=== PATIENT | female | born 1985 | race Caucasian/White ===

== ENCOUNTER 2024-05-26 09:48 | Outpatient (OUT) | payer BC, SELFPAY | END 2024-05-26 09:49 | disposition home or self-care (01) | LOC: PST 09:53 | PROVIDERS: PCP Nurse Practitioner Family; Visit Provider Obstetrics & Gynecology | DX: Z01.818 Encounter for other preprocedural examination (principal) ==

== ENCOUNTER 2024-06-05 06:54 | Day surgery (SDC) | payer BC, SELFPAY ==
[2024-05-26 10:07] VITALS: BP 129/85; PULSE 85; TEMP 36.6; O2SAT 96; BMI 27.0
[2024-06-05] VITALS (10 sets, daily range): BP systolic 105–134; BP diastolic 62–98; PULSE 73–97; TEMP 36.2; O2SAT 95–98; BMI 27.0
--- OUTSIDE RECORDS SUMMARY | 2024-06-05 06:58 | XMS_ITS | CCD ---
Author Organization [facility] Care Team Providers Care Cut In Worker Name Role Phone Cyndy Cox Primary Care Provider Cyndy Maldonado Primary Care Provider Renuka Hanley Unavailable Saritha Mehta Unavailable Patrizia Sal MD Primary Care Provider Patrizia Sal MD Unavailable Medications Current Medications Medication Drug Class(es) Dates Sig (Normalized) Sig (Original) ethinyl estradiol 0.02 mg / levonorgestrel 0.1 mg oral tablet (3 sources) Progestin, Estrogen, Progestin-containi ng Intrauterine Device Start: 10-22-2023 End: 10-21-2024 take 0.1-20 tablets by mouth once daily levonorgestrel-eth inyl estradiol (Aviane, Alesse, Lessina) 0.1-20 MG-MCG tablet Indications: Unwanted fertility Take 1 tablet by mouth Daily 28 tablet 2 10/22/2023 01/28/2024 Discontinued (Therapy completed) fluconazole 150 mg oral tablet (4 sources) Azole Antifungal Start: 03-16-2024 End: 03-30-2024 take 2 tablets by mouth every week fluconazole (Diflucan) 150 MG tablet Indications: Tinea versicolor Take 2 tablets (300 mg) by mouth 1 (one) time per week for 14 days 4 tablet 03/16/2024 03/30/2024 Active MULTIVITAMIN Tab (4 sources) take 1 tablet by mouth once daily MULTIVITAMIN Tab Take 1 tablet by mouth daily. 0 Active therapeutic sqfjbnalvsub-tirp-aw nerals (Theragran-M) tablet (10 sources) take 1 tablet by mouth in the morning therapeutic multivitamin-iron- minerals (Theragran-M) tablet Take 1 tablet by mouth in the morning. Active Completed/Discontinued Medications Medication Drug Class(es) Dates Sig (Normalized) Sig (Original) benzonatate 100 mg oral capsule (2 sources) Non-narcotic Antitussive Start: 08-25-2022 take 1 capsule by mouth three times daily as needed Tessalon Perles 100 MG 1 capsule as needed Orally Three times a day for 7 days Aug, Not-Taking ferrous sulfate 325 mg oral tablet (2 sources) End: 09-26-2021 take 1 tablet by mouth once daily ferrous sulfate 325 (65 Fe) MG Tab tablet Take 325 mg by mouth daily. 0 09/26/2021 Discontinued levonorgestrel 0.430230 mg/hr intrauterine system (4 sources) Progestin, Progestin-containi ng Intrauterine Device Start: 10-03-2021 End: 10-03-2021 Levonorgestrel (MIRENA) 20 MCG/DAY IUD 1 Intra Uterine Device Start: 10-03-2021 End: 10-03-2028 Levonorgestrel (Mirena, 52 M G,) 20 MCG/DAY 1 Device by Intrauterine route Once. use as directed,Inserted on 10-03-21. 0 10/03/2021 10/03/2028 Active predniSONE 20 mg oral tablet (2 sources) Start: 08-25-2022 take 1 tablet by mouth every twelve hours prednisone 20 MG 1 tablet Orally BID for 5 days Aug, Not-Taking Problems Active Problems Problem Classification Problem Date Documented Date Episodic/Chronic Contraceptive and procreative management (17 sources) Patient encounter status; Translations: [Encounter for other contraceptive management] Onset: 03-30-2024 Episodic Immunizations and screening for infectious disease (1 source) At risk of sexually transmitted infection ; Translations: [Contact with and (suspected) exposure to infections with a predominantly sexual mode of transmission] Episodic Mycoses (4 sources) Pityriasis versicolor; Translations: [Pityriasis versicolor] 03-16-2024 Episodic Other skin disorders (2 sources) Eruption; Translations: [Rash and other nonspecific skin eruption] 03-16-2024 Episodic Other upper respiratory infections (1 source) Acute upper respiratory infection, unspecified Episodic Unclassified (1 source) Patient encounter status; Translations: [Well adult exam] Past or Other Problems Problem Classification Problem Date Documented Da te Episodic/Chronic Unclassified (1 source) Cough R05.9 Unclassified (1 source) Contact with and (suspected) exposure to covid-19 Z20.822 Viral infection (1 source) COVID-19 Results Test Name Value Interpretation Reference Range Facility COVID Quick Testingon 2022 Result Positive [facility] Other Cytology Cervical or vaginal smear or scraping [facility]on [facility]-20-[facility]22 [facility] Result Negative [facility] Other IG PAP CT/NG/TRICH HPV W/RFX on 10-09-2021 . . Normal [facility] Comment on above: Performed By: #### L PCGT #### Testing performed at [address] [address] CHLAMYDIA,NUC ACID AMP Negative [facility] Comment on above: Result Comment: Refe rence range: Negative Performed By: #### L PCGT #### Testing performed at [address] [place] [address] DIAGNOSIS: Comment Normal [facility] Comment on above: Result Comment: NEGA TIVE FOR INTRAEPITHELIAL LESION OR MALIGNANCY. Performed By: #### L PCGT #### Testing performed at [address] [place] [address] GONOCOCCUS,NUC ACID AMP Negative [facility] Comment on above: Result Comment: Refe rence range: Negative Performed By: #### L PCGT #### Testing performed at [address] [place] [address] HPV Negative Normal [facility] Comment on above: Result Comment: Refe rence range: Negative (NOTE) This nucleic acid amplification test detects fourteen high-risk HPV types (16,18,31,33,35,39,45,51,52,56,58,59,66,68) without differentiation. Performed By: #### L PCGT #### Testing performed at [address] [address] NOTE: Comment Normal [facility] Comment on above: Result Comment: (NOT E) The Pap smear is a screening test designed to aid in the detection of premalignant and malignant conditions of the uterine cervix. It is not a diagnostic procedure and should not be used as the sole means of detecting cervical cancer. Both false-positive and false-negative reports do occur. PERFORMED AT [facility] Performed By: #### L PCGT #### Testing performed at [address] [address] PERFORMED BY: Comment [facility] Comment on above: Result Comment: Jesús Andujar, Wood Barrel Reconditioner Performed By: #### L PCGT #### Testing performed at [place] [id number] SPECIMEN ADEQUACY: Comment [facility] Comment on above: Result Comment: (NOT E) Satisfactory for evaluation. Endocervical and/or squamous metaplastic cells (endocervical component) are present. Performed By: #### L PCGT #### [place] [address] TEST METHODOLOGY: Comment [facility] Comment on above: Result Comment: (NOT E) This liquid based ThinPrep(R) pap test was screened with the use of an image guided system. PERFORMED AT [facility] Performed By: #### L PCGT #### [place] [address] TRICH [facility] BY JARED Negative [facility] Comment on above: Result Comment: No. of containers..01 ThinPrep Vial Reference range: Negative PERFORMED AT [facility] Performed By: #### L PCGT #### Testing performed at [place] [id number] HCG ( test) Ql (U)O rdered By: Sunita Tan on 10-03-2021 HCG.beta subunit [Moles/Vol] Negative [facility] IUD INSERTIONon 10-03-2021 Prieto Julio MD 10/03/2021 2:56 PM IUD INSERTION Date/Time: 10/03/2021 2:20 PM Performed by: Prieto Julio MD Authorized by: Prieto Julio MD Pre-Procedure Details: Indications for use: contraception. The risks of infection, uterine perforation, migration of the device, pain, bleeding, expulsion, and failure to prevent were discussed and informed consent was obtained. The patient was given a verbal description of the intended procedure including the risks and benefits of the procedure. The patient was then able to provide written informed consent for the above procedure. Current method of control: none. A urine test was negative. Procedure Details: A bimanual exam was performed. Uterus retroflexed. Speculum was inserted and cervix was visualized. The cervix was cleansed with antiseptic solution. A tenaculum was placed on the cervix. The uterus sounded to 6.5 (cm). The IUD was inserted according to the linen room custodian's directions without complications. IUD type: Mirena Lot number: [id number] Exp: 08/2023. The IUD strings were trimmed to 3 cm. Post-procedure Details: The patient tolerated the procedure well. The patient was advised to call for any fever, severe pain or heavy bleeding. She was advised to use over the counter analgesics as needed for mild to moderate pain. Comments: Post procedure instructions given Return for string check in 4 weeks [facility] Vital Signs Date Time Vital Sign Value Performing Clinician Facility 05-12-2024 09:32-0500 Body height 160 cm Quotations Book Phone: [facility] 05-12-2024 09:32-0500 Body mass index (BMI) [Ratio] 27.63 kg/m2 [facility] Book Phone: [facility] 05-12-2024 09:32-0500 Body weight 70.76 kg [employer] Book Phone: [facility] 05-12-2024 09:32-0500 Diastolic blood pressure 60 mm[Hg] [employer] Book Phone: [facility] 05-12-2024 09:32-0500 Systolic blood pressure 110 mm[Hg] [employer] Book Phone: [facility] 03-30-2024 13:22-0500 Body mass index (BMI) [Ratio] 26.22 kg/m2 GoGoVan DO Work Phone: [facility] 03-30-2024 13:22-0500 Body weight 67.13 kg Charles Jenny DO Work Phone: [facility] 03-30-2024 13:22-0500 Diastolic blood pressure 72 mm[Hg] Charles Jenny DO Work Phone: [facility] 03-30-2024 13:22-0500 Systolic blood pressure 120 mm[Hg] Charles Jenny DO Work Phone: [facility] 03-16-2024 17:17-0500 Body height 160 cm Natacha Santiagomai DIRECTOR OF CONTENT AND PROGRAMMING Work Phone: [facility] 03-16-2024 17:17-0500 Body mass index (BMI) [Ratio] 26.78 kg/m2 Natacha Santiagomai DIRECTOR OF CONTENT AND PROGRAMMING Work Phone: [facility] 03-16-2024 17:17-0500 Body weight 68.58 kg Natacha Santiagoizzygillesbalaji DIRECTOR OF CONTENT AND PROGRAMMING Work Phone: [facility] 03-16-2024 17:17-0500 Diastolic blood pressure 82 mm[Hg] Natacha Santiagomai DIRECTOR OF CONTENT AND PROGRAMMING Work Phone: [facility] 03-16-2024 17:17-0500 Heart rate 91 /min Natacha Santiagomai DIRECTOR OF CONTENT AND PROGRAMMING Work Phone: [facility] 03-16-2024 17:17-0500 SaO2% (BldA) [Mass fraction] 98 % Natacha Santiagomai DIRECTOR OF CONTENT AND PROGRAMMING Work Phone: [facility] 03-16-2024 17:17-0500 Systolic blood pressure 116 mm[Hg] Natacha Haizzyenburg DIRECTOR OF CONTENT AND PROGRAMMING Work Phone: [facility] 01-28-2024 11:30-0400 Body mass index (BMI) [Ratio] 27.81 kg/m2 Jelly Kennedy [facility] Work Phone: [facility] 01-28-2024 11:30-0400 Body weight 71.22 kg Jelly Kennedy [facility] Work Phone: [facility] 03-01-2023 09:25-0400 Body height 160.02 cm Saritha Mehta Other [facility] Other 03-01-2023 09:25-0400 Body mass index (BMI) [Ratio] 26.75 kg/m2 Saritha Janine Other [facility] Other 03-01-2023 09:25-0400 Body temperature 99.1 [degF] Saritha Mehta Other [facility] Other 03-01-2023 09:25-0400 Body weight 68.49 kg Saritha Angelesmond Other [facility] Other 03-01-2023 09:25-0400 Diastolic blood pressure 86 mm[Hg] Saritha Mehta Other [facility] Other 03-01-2023 09:25-0400 Respiratory rate 18 /min Saritha Mehta Other [facility] Other 03-01-2023 09:25-0400 SaO2% (BldA) [Mass fraction] 96 % Saritha Angelesmond Other [facility] Other 03-01-2023 09:25-0400 Systolic blood pressure 136 mm[Hg] Saritha Janine Other [facility] Other 08-25-2022 14:00-0400 Body height 160.02 cm Renuka Hanley Other [facility] Other 08-25-2022 14:00-0400 Body mass index (BMI) [Ratio] 28.13 kg/m2 Renuka Hanley Other [facility] Other 08-25-2022 14:00-0400 Body temperature 98.9 [degF] Renuka Hanley Other [facility] Other 08-25-2022 14:00-0400 Body weight 72.03 kg Renuka Hanley Other [facility] Other 08-25-2022 14:00-0400 Diastolic blood pressure 83 mm[Hg] Renuka Hanley Other [facility] Other 08-25-2022 14:00-0400 Respiratory rate 18 /min Renuka Hanley Other [facility] Other 08-25-2022 14:00-0400 SaO2% (BldA) [Mass fraction] 97 % Renuka Medellinler Other [facility] Other 08-25-2022 14:00-0400 Systolic blood pressure 122 mm[Hg] Renuka Hanley Other [facility] Other 10-31-2021 12:52-0400 Body height 161.3 cm Prieto Julio MD Work Phone: [facility] 10-31-2021 12:52-0400 Body mass index (BMI) [Ratio] 26.07 kg/m2 Prieto Julio MD Work Phone: [facility] 10-31-2021 12:52-0400 Body weight 67.81 kg Prieto Julio MD Work Phone: [facility] 10-31-2021 12:52-0400 Diastolic blood pressure 81 mm[Hg] Prieto Julio MD Work Phone: [facility] 10-31-2021 12:52-0400 Heart rate 78 /min Prieto Julio MD Work Phone: [facility] 10-31-2021 12:52-0400 Systolic blood pressure 123 mm[Hg] Prieto Julio MD Work Phone: 8(121)[phone] [place] [address] 10-03-2021 13:40-0400 Body height 161.3 cm Prieto Julio MD Work Phone: 8(504)[phone] [place] [address] 10-03-2021 13:40-0400 Body mass index (BMI) [Ratio] 25.11 kg/m2 Prieto Julio MD Work Phone: 7([phone])[phone] [place] [address] 10-03-2021 13:40-0400 Body weight 65.32 kg Prieto Julio MD Work Phone: 1(923)[phone] [place] [address] 10-03-2021 13:40-0400 Diastolic blood pressure 81 mm[Hg] Prieto Julio MD Work Phone: 2(689)981-155536 [place] [address] 10-03-2021 13:40-0400 Heart rate 86 /min Prieto Julio MD Work Phone: 5(702)653-800736 [place] [address] 10-03-2021 13:40-0400 Systolic blood pressure 135 mm[Hg] Prieto Julio MD Work Phone: [facility] 09-26-2021 09:38-0400 Body height 162 cm Cyndy REYES Work Phone: [facility] 09-26-2021 09:38-0400 Body mass index (BMI) [Ratio] 25.2 kg/m2 Cyndy Cox APRN-CHILDCARE CENTER ADMINISTRATOR Work Phone: [facility] 09-26-2021 09:38-0400 Body weight 66.13 kg Cyndy Cox APRN-CHILDCARE CENTER ADMINISTRATOR Work Phone: [facility] 09-26-2021 09:38-0400 Diastolic blood pressure 82 mm[Hg] Cyndy Cox APRN-CHILDCARE CENTER ADMINISTRATOR Work Phone: [facility] 09-26-2021 09:38-0400 Heart rate 77 /min Cyndy Cox APPLICATIONS SYSTEMS ENGINEER-CHILDCARE CENTER ADMINISTRATOR Work Phone: [facility] 09-26-2021 09:38-0400 Systolic blood pressure 118 mm[Hg] Cyndy Cox APPLICATIONS SYSTEMS ENGINEER-CHILDCARE CENTER ADMINISTRATOR Work Phone: [facility] 04-23-2019 09:32-0500 BMI (Body Mass Index) 23.66 kg/m2 Cyndy Kenny [facility] 04-23-2019 09:32-0500 Body weight 62.1 kg Cyndy Kenny [facility] 04-23-2019 09:32-0500 BP Diastolic 75 mm[Hg] Located Within [facility] Kenny Vacatia [facility] 04-23-2019 09:32-0500 BP Systolic 114 mm[Hg] Cyndy Kenny [facility] 04-23-2019 09:32-0500 Height 162 cm Cyndy Kenny [facility] 04-23-2019 09:32-0500 Pulse (Heart Rate) 82 /min Cyndy Kenny [facility] 04-23-2019 09:32-0500 Pulse Oximetry 100 % [facility] Encounter Date Encounter Type Care Provider Facility Start: 05-12-2024 End: 05-12-2024 Bamboo flowsheet Charles Jenny DO Work Phone: [facility] Start: 05-12-2024 End: 05-12-2024 Bamboo flowsheet Charles Jenny DO Work Phone: [facility] Start: 05-12-2024 End: 05-12-2024 Office outpatient visit 15 minutes Charles Jenny DO Work Phone: [facility] Comment on above: Pre-operative exam; Request for sterilization Start: 05-12-2024 End: 05-12-2024 Preprocedural examination done Charles Jenny DO Work Phone: [facility] Work Phone: Start: 03-30-2024 End: 03-30-2024 Bamboo flowsheet Charles Jenny DO Work Phone: [facility] Start: 03-30-2024 End: 03-30-2024 Bamboo flowsheet Charles Jenny DO Work Phone: [facility] Start: 03-30-2024 End: 03-30-2024 Office outpatient visit 15 minutes Charles Jenny DO Work Phone: [facility] Comment on above: Encounter to discuss procedure; Unwanted fertility; Sterilization consult Start: 03-16-2024 End: 03-16-2024 Office outpatient visit 25 minutes Natacha Esposito DIRECTOR OF CONTENT AND PROGRAMMING Work Phone: [facility] Comment on above: Tinea versicolor (Pr imary Dx); Skin rash Start: 02-12-2024 End: 02-12-2024 Orders Only Jelly Kennedy CNM Work Phone: [facility] Comment on above: Unwanted fertility ( Primary Dx) Start: 01-28-2024 End: 01-28-2024 Bamboo flowsheet Jelly Kennedy CNM Work Phone: [facility] Start: 01-28-2024 End: 01-28-2024 Bamboo flowsheet Jelly Kennedy CNM Work Phone: [facility] Start: 01-28-2024 End: 01-28-2024 Gynecological examination normal Jelly Kennedy CNM Work Phone: [facility] Start: 01-28-2024 End: 01-28-2024 Periodic preventive med est patient 18-39 yrs Jelly Kennedy CNM Work Phone: [facility] Comment on above: Normal gynecologic e xamination Start: 03-01-2023 End: 03-01-2023 ambulatory Saritha Mehta Other [facility] Other Start: 03-01-2023 Office outpatient vi sit 15 minutes Saritha Mehta [facility] Start: 08-25-2022 End: 08-25-2022 ambulatory Renuka Hanley Other [facility] Other Start: 08-25-2022 Office outpatient ne w 30 minutes Renuka Hanley [facility] Start: 10-31-2021 End: 10-31-2021 Office outpatient visit 15 minutes Prieto Julio MD Work Phone: [facility] [employer]PA[employer] Comment on above: Encounter for routin e checking of intrauterine contraceptive device (IUD) (Primary Dx); IUD (intrauterine device) in place Start: 10-03-2021 End: 10-03-2021 Initial preventive medicine new patient 40-64yrs Prieto Julio MD Work Phone: [facility] [employer]PA[employer] Comment on above: Well woman exam with routine gynecological exam (Primary Dx); Encounter for screening for cervical cancer; Encounter for breast cancer screening using non-mammogram modality; Encounter for other general counseling or advice on contraception; Encounter for insertion of intrauterine contraceptive device (IUD); Possible exposure to STD Start: 09-26-2021 End: 09-26-2021 Office outpatient visit 15 minutes Cyndy Cox APRN-CHILDCARE CENTER ADMINISTRATOR Work Phone: [facility] Comment on above: Encounter for other contraceptive management (Primary Dx) Start: 04-23-2019 End: 04-23-2019 Initial preventive medicine new pt age 18-39yrs Cyndy Cox Work Phone: [facility] Comment on above: Well adult exam (Felisha carolyn Dx) Procedures Date Procedure Procedure Detail Performing Clinician Start: 12-20-2022 Microscopic observat ion [Identifier] in Cervix by Cyto stain Charles Alvarado DO Work Phone: Start: 12-20-2022 Cytp cerv/vag auto t hin layer prep mnl screen Jelly Kennedy CNM Work Phone: Start: 10-03-2021 Urine test visual color cmprsn meths Prieto Julio MD Work Phone: Start: 10-03-2021 Insertion intrauteri ne device iud Prieto Julio MD Work Phone: Plan of Treatment Date Care Activity Detail Author Start: 12-21-2027 Screening for malign ant neoplasm of cervix [facility] Start: 03-30-2024 End: 03-30-2024 Patient encounter procedure [facility] Comment on above: Unwanted fertility Start: 01-28-2024 End: 01-28-2024 Patient encounter procedure 01/28/2024 11:00 AM EDT Office Visit [facility] [address] [place] [id number] Jelly Kennedy, CNM [address] [place], [place] [id number] Arrived [facility] Comment on above: Arrived Start: 01-05-2024 Influenza vaccination Influenza Vacc ine (#1) [facility] Start: 10-03-2022 Screening for malign ant neoplasm of cervix CERVICAL CANCER SCREENING DISCUSSION [facility] Start: 01-04-2022 Influenza vaccination INFLUENZ A VACCINE (Season Ended) [facility] Start: 11-01-2021 End: 11-01-2021 Patient encounter procedure 11/01/2021 Office Visit [employer] Prieto Julio MD [address] [place] [phone] [facility] [employer] Start: 10-03-2021 End: 10-03-2021 Patient encounter procedure [facility] Start: 06-28-2021 COVID-19 VACCINE (3 - Booster for Pfizer series) COVID-19 VACCINE (3 - Booster for Pfizer series) [facility] Start: 04-23-2020 Screening for malign ant neoplasm of cervix [facility] Start: 05-06-2018 Tetanus vaccination [facility] Start: 2005 Screening for malign ant neoplasm of cervix Pap Smear [facility] Start: 11-20-1999 HIV screening HIV SCREENING DISCUSSION [facility] Start: 1997 HIV screening HIV SCREENING DISCUSSION [facility] Start: 1984 Hepatitis C antibody , confirmatory test HEPATITIS C VIRUS SCREENING [facility] IG PAP/HPV MRNA AND CT/NG/TRICH IG PAP/HPV MRNA AND CT/NG/TRICH Cytology Routine 10/03/2021 2:00 PM EDT [facility] Immunizations Immunization Date Immunization Notes Care Provider Arina hunayeli 02-18-2019 Influenza, injectabl e, Madin Mary Canine Kidney, preservative free, quadrivalent Jelly Floro CNM Work Phone: [facility] 02-18-2019 influenza virus vaccine, unspecified formulation Cyndy Kenny APPLICATIONS SYSTEMS ENGINEER-CHILDCARE CENTER ADMINISTRATOR Work Phone: [facility] 02-22-2018 influenza, injectabl e, quadrivalent, preservative free Jelly Floro CNM Work Phone: [facility] 04-22-2014 influenza, seasonal, injectable Jelly Floro CNM Work Phone: [facility] Healthcare Payers Date Payer Category Payer [facility] [id number] 2021 Unknown [id number] 2018 Unknown JUAN MARTINEZ HM O PPO POS xxxxxxxxxxxx 2018-Present [id number] [place] [employer] [id number] Social History Date Type Detail Facility Start: 04-23-2019 End: 12-20-2022 Tobacco smoking status NHIS Never smoker [facility] Start: 04-23-2019 End: 03-30-2024 Alcohol intake Current drinker of alcohol (finding) [facility] Start: 04-23-2019 History SDOH Alcohol Frequency 3 [facility] Start: 04-23-2019 History SDOH Alcohol Std Drinks 1 [facility] Start: 1985 Sex Assigned At Not on file [facility] Start: 04-23-2019 End: 12-20-2022 Tobacco use and exposure Smokeless tobacco non-user [facility] Start: 09-16-2021 End: 10-03-2021 Exposure to SARS-CoV-2 (event) Not sure [facility] Start: 02-03-2023 End: 03-16-2024 Sex Assigned At [facility] Start: 02-03-2023 End: 03-16-2024 History of Social function [facility] Within the last year , have you been afraid of your partner or ex-partner? No [facility] How often do you att end meetings of the clubs or organizations you belong to? Patient declined [facility] Are you now , , , , never or living with a partner? Never [facility] How often to you hav e a drink containing alcohol? 2-4 times a month [facility] How many standard dr inks containing alcohol do you have on a typical day? 1 or 2 [facility] How often do you hav e 6 or more drinks on 1 occasion? Never [facility] How hard is it for y ou to pay for the very basics like food, housing, medical care, and heating Not very hard [facility] Do you feel stress - tense, restless, nervous, or anxious, or unable to sleep at night because your mind is troubled all the time - these days [OSQ] Not at all [facility] (I/We) worried renny er (my/our) food would run out before (I/we) got money to buy more. Never true [facility] Start: 1985 Sex assigned at Female [facility] Start: 12-10-2022 Gender identity Identifies as female gender (finding) [facility] Start: 12-10-2022 Sexual orientation Heterosexual (finding) [facility] Clinical Notes 09-26-2021 to 05-12-2024 Camila Rouse - 05/12/2024 9:20 AM Kaya Marr, PLUMBING AND HEATING MECHANIC - 03/30/2024 1:10 PM Dre Esposito NP - 03/16/2024 5:30 PM Smitha Kennedy, CHRISTOPHER - 02/12/2024 9:46 AM EDT Note Date & Type Note Facility 05-12-2024 History of Presen t illness Narrative Reason for Appointment: Patient ID: Astrid Malave is a 38 y.o. female who presents for Pre-op Visit Patient presents today for Pre Op appointment. Patient is scheduled to undergo Da Trice assisted Bilateral Laparoscopic Salpingectomy on 06/05/[address] Alvarado at [facility]. MEDICATIONS Current Outpatient Medications Medication Instructions therapeutic locorctzukie-ptig-aexlwvvs (Theragran-M) tablet 1 tablet, Daily RT ALLERGIES No Known Allergies PROBLEMS Active Ambulatory Problems Diagnosis Date Noted Sterilization consult 03/30/2024 Encounter to discuss procedure 03/30/2024 Resolved Ambulatory Problems Diagnosis Date Noted No Resolved Ambulatory Problems No Additional Past Medical History HISTORY PAST MEDICAL HISTORY SOCIAL HISTORY History reviewed. No pertinent past medical history. Social History Tobacco Use Smoking status: Never Smokeless tobacco: Never Substance Use Topics Alcohol use: Yes Drug use: Never FAMILY HISTORY Family History Problem Relation Name Age of Onset Osteoporosis Mother Hyperlipidemia Mother Other (POTS) Sister SURGICAL HISTORY History reviewed. No pertinent surgical history. REVIEW OF SYSTEMS Review of Systems: Review of Systems Constitutional: Negative. HENT: Negative. Eyes: Negative. Respiratory: Negative. Cardiovascular: Negative. Gastrointestinal: Negative. Genitourinary: Negative. Musculoskeletal: Negative. Skin: Negative. Neurological: Negative. All other systems reviewed and are negative. Hematological: Negative. Endocrine: Negative. Allergic/Immunologic: Negative. OBJECTIVE Objective: Physical Exam Constitutional: Appearance: Normal appearance. She is well-developed. Cardiovascular: Rate and Rhythm: Normal rate and regular rhythm. Pulmonary: Effort: Pulmonary effort is normal. Breath sounds: Normal breath sounds. Abdominal: General: Bowel sounds are normal. There is no distension. Palpations: Abdomen is soft. Tenderness: There is no abdominal tenderness. There is no guarding or rebound. Musculoskeletal: General: No swelling. Normal range of motion. Right lower leg: No edema. Left lower leg: No edema. Neurological: Mental Status: She is alert and oriented to person, place, and time. Skin: General: Skin is warm and dry. Psychiatric: Mood and Affect: Mood normal. Behavior: Behavior normal. Vitals and nursing note reviewed. Exam conducted with a icu staff nurse present. Vitals: Estimated body mass index is 27.63 kg/m as calculated from the following: Height as of this encounter: 5' 3 . Weight as of this encounter: 156 lb. BP: 110/60 Patient's last menstrual period was 04/21/2024. ASSESSMENT & PLAN ICD-10-CM 1. Pre-operative exam Z01.818 2. Request for sterilization Z30.2 Pre Op: Patient is doing well but has desire for sterilization. I have discussed conservative management vs. surgical management with the patient in detail and patient desires surgical management at this time. Patient has voiced understanding that a Bilateral Salpingectomy is considered to be permanent and patient will undergo Da Trice assisted Bilateral Laparoscopic Salpingectomy on 06/05/2024. Surgical consents were signed, mmc was reviewed, and patient is to proceed to [facility] OR. Follow Up: Patient is to follow up between 1-2 weeks post op to assess proper healing and recovery from procedure. Documented by Latosha Young LPN on behalf of: Charles Alvarado DO documented in this encounter [facility] 03-30-2024 History of Presen t illness Narrative Reason for Appointment: Patient ID: Astrid Malave is a 38 y.o. female who presents for discuss a salpingectomy (Pt present today to discuss a salpingectomy) Patient presents today for Consult appointment. MEDICATIONS Current Outpatient Medications Medication Instructions fluconazole (DIFLUCAN) 300 mg, Oral, Weekly therapeutic tgvuozxicnoq-hook-ovhrfdro (Theragran-M) tablet 1 tablet, Daily RT ALLERGIES No Known Allergies PROBLEMS Active Ambulatory Problems Diagnosis Date Noted No Active Ambulatory Problems Resolved Ambulatory Problems Diagnosis Date Noted No Resolved Ambulatory Problems No Additional Past Medical History HISTORY PAST MEDICAL HISTORY SOCIAL HISTORY No past medical history on file. Social History Tobacco Use Smoking status: Never Smokeless tobacco: Never Substance Use Topics Alcohol use: Yes Drug use: Never FAMILY HISTORY Family History Problem Relation Name Age of Onset Osteoporosis Mother Hyperlipidemia Mother SURGICAL HISTORY History reviewed. No pertinent surgical history. REVIEW OF SYSTEMS Review of Systems: Review of Systems All other systems reviewed and are negative. OBJECTIVE Objective: Physical Exam Constitutional: Appearance: Normal appearance. She is well-developed. Cardiovascular: Rate and Rhythm: Normal rate and regular rhythm. Pulmonary: Effort: Pulmonary effort is normal. Breath sounds: Normal breath sounds. Abdominal: General: Bowel sounds are normal. There is no distension. Palpations: Abdomen is soft. Tenderness: There is no abdominal tenderness. There is no guarding or rebound. Musculoskeletal: General: No swelling. Normal range of motion. Right lower leg: No edema. Left lower leg: No edema. Neurological: Mental Status: She is alert and oriented to person, place, and time. Skin: General: Skin is warm and dry. Psychiatric: Mood and Affect: Mood normal. Behavior: Behavior normal. Vitals and nursing note reviewed. Exam conducted with a icu staff nurse present. Vitals: Estimated body mass index is 26.22 kg/m as calculated from the following: Height as of 24: 5' 3 . Weight as of this encounter: 148 lb. BP: 120/72 Patient's last menstrual period was 03/22/2024 (approximate). ASSESSMENT & PLAN ICD-10-CM 1. Encounter to discuss procedure Z71.89 2. Unwanted fertility Z30.09 Ambulatory referral to Obstetrics / Gynecology Patient presents today for consult/referral from Maren Kennedy for sterilization. Patient desires permanent sterilization and will be scheduled for Robotic Bilateral Salpingectomy. Patient to setup pre-op and surgery date prior to leaving office today. Discussed procedure with patient and recovery phase. PVU Documented by Tania Marr LPN on behalf of: Charles Alvarado DO documented in this encounter [facility] 03-16-2024 History of Presen t illness Narrative Images from the original note were not included. Astrid Malave is a 38 y.o. female presents with chief complaint of Rash HPI: HPI History of Present Illness The patient presents for evaluation of a rash. She reports two distinct rashes, one located under her bra and the other on her back. The rash on her back appears to be triggered by heat or perspiration and extends from her shoulder blades down her back. Despite her efforts to pretty, the rash has persisted for several weeks. Physical activities such as hiking or gym workouts, which cause her to overheat, often result in a breakout. She recalls a similar episode last year, which was successfully treated with oral Diflucan. She maintains good hygiene, cleaning her bra and showering after each workout. The rash is not itchy, but its presence is a source of discomfort for her. SUBJECTIVE: MEDICATIONS: Current Outpatient Medications Medication Instructions therapeutic czszqrugkqho-vyek-ytflxctc (Theragran-M) tablet 1 tablet, Daily RT I have reviewed and reconciled the history and medication list with the patient today. REVIEW OF SYMPTOMS: Review of Systems Skin: Positive for rash. OBJECTIVE: Visit Vitals BP 116/82 Pulse 91 Ht 5' 3 Wt 151 lb 3.2 oz SpO2 98% BMI 26.78 kg/m OB Status Having periods Smoking Status Never BSA 1.75 m Physical Exam Vitals and nursing note reviewed. Constitutional: Appearance: Normal appearance. HENT: Head: Normocephalic and atraumatic. Right Ear: Hearing and tympanic membrane normal. Left Ear: Hearing and tympanic membrane normal. Nose: Nose normal. Right Turbinates: Not enlarged. Left Turbinates: Not enlarged. Right Sinus: No maxillary sinus tenderness or frontal sinus tenderness. Left Sinus: No maxillary sinus tenderness or frontal sinus tenderness. Mouth/Throat: Lips: Entiat. Mouth: Mucous membranes are moist. Pharynx: Oropharynx is clear. Uvula midline. Tonsils: No tonsillar exudate. Eyes: General: Lids are normal. Vision grossly intact. Gaze aligned appropriately. Extraocular Movements: Extraocular movements intact. Conjunctiva/sclera: Conjunctivae normal. Neck: Thyroid: No thyroid mass or thyromegaly. Vascular: No carotid bruit. Trachea: Trachea normal. Cardiovascular: Rate and Rhythm: Normal rate and regular rhythm. Pulses: Normal pulses. Heart sounds: Normal heart sounds. Pulmonary: Effort: Pulmonary effort is normal. Breath sounds: Normal breath sounds and air entry. Abdominal: General: Abdomen is flat. Bowel sounds are normal. Palpations: Abdomen is soft. Musculoskeletal: Cervical back: Full passive range of motion without pain, normal range of motion and neck supple. Lymphadenopathy: Cervical: No cervical adenopathy. Skin: General: Skin is warm. Capillary Refill: Capillary refill takes less than 2 seconds. Comments: Several mildly erythematous, thin plaques present to the upper portion of her chest, back, shoulders, and neck Neurological: Mental Status: She is alert and oriented to person, place, and time. Sensory: Sensation is intact. Motor: Motor function is intact. Coordination: Coordination is intact. Psychiatric: Attention and Perception: Attention and perception normal. Mood and Affect: Mood and affect normal. Speech: Speech normal. Behavior: Behavior is cooperative. Thought Content: Thought content normal. ASSESSMENT AND PLAN: Assessment/Plan Diagnoses and all orders for this visit: Tinea versicolor - Ambulatory referral to Dermatology; Future - fluconazole (Diflucan) 150 MG tablet; Take 2 tablets (300 mg) by mouth 1 (one) time per week for 14 days Will treat with diflucan at this time; as well as refer to dermatology. Skin rash documented in this encounter [facility] 02-12-2024 History of Presen t illness Narrative Received message from patient that she does want to get a salpingectomy performed. She does realized this is permanent sterilization and does desire. I did discuss with her providers to perform this procedure and she is in agreement to see Dr Alvarado. Referral sent. documented in this encounter [facility] 01-28-2024 History of Presen t illness Narrative YEARLY HPI: This is a established patient. Chief Complaint Patient presents with Gynecologic Exam Here for annual exam. 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 No pertinent past medical history. History reviewed. No pertinent surgical history. Family History Problem Relation Name Age of Onset Osteoporosis Mother Hyperlipidemia Mother Allergies: No Known Allergies Medications: Current Outpatient Medications on File Prior to Visit Medication Sig Dispense Refill therapeutic obxvotjwpfxb-ewjf-drvjrhfj (Theragran-M) tablet Take 1 tablet by mouth in the morning. [DISCONTINUED] levonorgestrel-ethinyl estradiol (Aviane, Alesse, Lessina) 0.1-20 MG-MCG tablet Take 1 tablet by mouth Daily 28 tablet 2 No current facility-administered medications on file prior to visit. ROS: Review of Systems All other systems reviewed and are negative. There were no vitals filed for this visit. Physical exam: Physical Exam Genitourinary: Comments: Normal Pap 2022 bimanual exam Assessment and Plan: 1. Annual exam 2. SBE discussed: Yes 3. Diet and exercise discussed: Yes 4. Wt control discussed: No 5. Safe sex discussed: Yes Astrid was seen today for gynecologic exam. Diagnoses and all orders for this visit: Normal gynecologic examination No follow-ups on file. There are no Patient Instructions on file for this visit. Patrizia Sears MA, 01/28/2024 11:33 AM documented in this encounter [facility] 03-01-2023 Evaluation note Encounter Date Diagnosis Assessment Notes Feb, Contact with and (suspected) exposure to covid-19 (ICD-10 - Z20.822) Feb, COVID-19 (ICD-10 - U07.1) Discharge Instructions for COVID-19 (Suspected or Confirmed ) material was printed Plenty fluids, get plenty of rest. Take Tylenol or Motrin as needed for aches pains or fevers. You must quarantine for 5 days after the onset of your symptoms of COVID. You must quarantine until March 04. Follow-up with your family physician if no improvement in 2 to 3 days [facility] Other 04-22-2023 Evaluation note* Encounter Date Diagnosis Assessment Notes Treatment Notes Treatment Clinical Notes Aug, Cough (ICD-10 - R05.9) Aug, Viral URI (ICD-10 - J06.9) Advised patient that rapid COVID test was negative today. Discussed diagnosis with patient. Advised that there are no signs of acute lung process noted today on exam. Advised patient that will treat as viral URI. Supportive care as directed, increase fluids and rest, Tylenol/Motrin as directed, OTC cough/cold remedies as directed on packaging, cool mist humidifier, throat lozenges. Will send in Rx of Tessalon Perles, and prednisone to use as directed. Discussed infection control practices such as good hand washing and mask wearing. Patient to follow up with PCP if symptoms persist or worsen despite treatment. Immediate eval for SOB, difficulty breathing, chest pain, fevers that do not break with antipyretic or any other concerning symptoms as reviewed on patient education handout. Patient verbalizes understanding and is agreeable to treatment plan. Patient left in stable condition. [facility] Other 06-28-2022 History of Present illness Narrative* Prieto Julio MD - 10/31/2021 1:00 PM EDT HPI Astrid Malave is a 35 y.o. female who presents today for concerns including Contraception (Here for IUD sting check. Mirena placed on 10-03-21.) Patient reported that she has been spotting since the device was placed and is currently on her period now. No other concerns reported at this time. LMP: Patient's last menstrual period was 10/28/2021. No results found for: PAPSMEAR OB HISTORY: OB History Para Term AB Living 0 0 0 0 0 0 SAB IAB Ectopic Molar Multiple Live Births 0 0 0 0 0 0 HISTORY/ALLERGIES No Known Allergies No past medical history on file. No past surgical history on file. Social History Tobacco Use Smoking status: Never Smoker Smokeless tobacco: Never Used Substance Use Topics Alcohol use: Yes Drug use: Never Family History Problem Relation Age of Onset Other - Specify Mother Osteoporosis Mother Current Outpatient Medications: Levonorgestrel (Mirena, 52 MG,) 20 MCG/DAY, 1 Device by Intrauterine route Once. use as directed,Inserted on 10-03-21., Disp: , Rfl: MULTIVITAMIN Tab, Take 1 tablet by mouth daily., Disp: , Rfl: ROS Review of Systems Constitutional: Negative. HENT: Negative. Eyes: Negative. Respiratory: Negative. Cardiovascular: Negative. Gastrointestinal: Negative. Genitourinary: Negative. Musculoskeletal: Negative. Skin: Negative. Neurological: Negative. Psychiatric/Behavioral: Negative. All other systems reviewed and are negative. EXAM BP 123/81 (BP Location: Right arm, BP Position: Sitting) Pulse 78 Ht 5' 3.5 (1.613 m) Wt 149lb 8 oz (67.8 kg) BMI 26.07 kg/m Smoking Status Never Smoker Physical Exam Vitals and nursing note reviewed. Exam conducted with a icu staff nurse present. Constitutional: General: She is not in acute distress. Appearance: Normal appearance. She is normal weight. She is not ill-appearing. HENT: Head: Normocephalic and atraumatic. Cardiovascular: Rate and Rhythm: Normal rate. Pulmonary: Effort: Pulmonary effort is normal. Abdominal: General: There is no distension. Palpations: Abdomen is soft. There is no mass. Tenderness: There is no abdominal tenderness. Genitourinary: General: Normal vulva. Vagina: No vaginal discharge. Comments: IUD string noted to be in place Musculoskeletal: General: Normal range of motion. Cervical back: Normal range of motion. Skin: General: Skin is warm and dry. Neurological: General: No focal deficit present. Mental Status: She is alert and oriented to person, place, and time. Psychiatric: Mood and Affect: Mood normal. Behavior: Behavior normal. Diagnosis/Plan: Astrid was seen today for contraception. Diagnoses and all orders for this visit: Encounter for routine checking of intrauterine contraceptive device (IUD) Comments: Inserted on 10/03/2021 I shared my exam findings with patient. Encouraged annual string checks. IUD (intrauterine device) in place Answered all of patient's questions and she verbalized understanding Shared decision making; patient in agreement Prieto Julio MD 10/31/2021 [facility] of Present illness Narrative* Prieto Julio MD - 10/03/2021 2:20 PM EDTAssociated Order(s): IUD INSERTION Post-Procedure Diagnose(s): Encounter for insertion of intrauterine contraceptive device (IUD) HPI Astrid Malave is a 35 y.o. female who presents today for concerns including Annual Grinder Hand Exam (Patient here for annual with pap. Requesting STD testing. This is her 1st pap.) Does do self breast exams occasionally. No urinary symptoms nor pelvic pain reported at this time. Will like to get on control and asked about getting on a LARC. She reported that she has never been on control and will like something more manager long term care. No other concerns reported at this time. LMP: Patient's last menstrual period was 09/23/2021. No results found for: PAPSMEAR OB HISTORY: OB History Para Term AB Living 0 0 0 0 0 0 SAB IAB Ectopic Molar Multiple Live Births 0 0 0 0 0 0 HISTORY/ALLERGIES No Known Allergies No past medical history on file. No past surgical history on file. Social History Tobacco Use Smoking status: Never Smoker Smokeless tobacco: Never Used Substance Use Topics Alcohol use: Yes Drug use: Never Family History Problem Relation Age of Onset Other - Specify Mother Osteoporosis Mother Current Outpatient Medications: MULTIVITAMIN Tab, Take 1 tablet by mouth daily., Disp: , Rfl: ROS Review of Systems Constitutional: Negative. HENT: Negative. Eyes: Negative. Respiratory: Negative. Cardiovascular: Negative. Gastrointestinal: Negative. Genitourinary: Negative. Musculoskeletal: Negative. Skin: Negative. Neurological: Negative. Psychiatric/Behavioral: Negative. All other systems reviewed and are negative. EXAM BP 135/81 Pulse 86 Ht 5' 3.5 (1.613 m) Wt 144 lb (65.3 kg) BMI 25.11 kg/m Smoking StatusNever Smoker Physical Exam Vitals and nursing note reviewed. Exam conducted with a icu staff nurse present. Constitutional: General: She is not in acute distress. Appearance: Normal appearance. She is normal weight. She is not ill-appearing. HENT: Head: Normocephalic and atraumatic. Cardiovascular: Rate and Rhythm: Normal rate and regular rhythm. Heart sounds: Normal heart sounds. Pulmonary: Effort: Pulmonary effort is normal. Breath sounds: Normal breath sounds. Chest: Chest wall: No mass. Breasts: Breasts are symmetrical. Right: Normal. No axillary adenopathy. Left: Normal. No axillary adenopathy. Abdominal: General: There is no distension. Palpations: Abdomen is soft. There is no mass. Genitourinary: General: Normal vulva. Exam position: Lithotomy position. Pubic Area: No rash. Labia: Right: No rash, tenderness, lesion or injury. Left: No rash, tenderness, lesion or injury. Vagina: Normal. No vaginal discharge. Cervix: Normal. Uterus: Normal. Comments: Mirena IUD inserted without incident. No other abnormalities noted at this time. Musculoskeletal: General: Normal range of motion. Cervical back: Normal range of motion. Lymphadenopathy: Upper Body: Right upper body: No axillary adenopathy. Left upper body: No axillary adenopathy. Skin: General: Skin is warm and dry. Neurological: General: No focal deficit present. Mental Status: She is alert and oriented to person, place, and time. Psychiatric: Mood and Affect: Mood normal. Behavior: Behavior normal. Diagnosis/Plan: Astrid was seen today for annual exam. Diagnoses and all orders for this visit: Well woman exam with routine gynecological exam - [facility] CYTOLOGY-ELECTRICAL MAINTENANCE WORKER, LIQUID BASED Encouraged annual Grinder Hand Exams Encounter for screening for cervical cancer - [facility] CYTOLOGY-ELECTRICAL MAINTENANCE WORKER, LIQUID BASED We talked about the continuum of care in the screening of cervical cancer as per ASCCP guidelines. I shared with patient that the results will be back within a week and I will review them and releasethem to her on [facility]. If there are any abnormal results, she will hear from us and we will followthe algorithms set forth by the ASCCP guidelines. Encounter for breast cancer screening using non-mammogram modality CBE done today Did teaching on self breast awareness Encouraged monthly self breast exams and annual mammograms starting at age 40 Encounter for other general counseling or advice on contraception We talked about all alternative forms of control. Risks, benefits and what to expect on all the different forms of control were discussed. I discussed the LARCs in detail and patient shared that given that she is most interested in a LARCand has been leaning towards the IUD, she will like to have the Mirena IUD for contraception. Educational material given Encounter for insertion of intrauterine contraceptive device (IUD) Mirena Counseling Discussed risks and benefits of Mirena, including but not limited to those associated with hormonalbirth control, such as headaches, blood clots which can travel to heart, brain, or lungs, breast cancer, increased BP, depression, weight gain, and . If occurs, it is more likely to be tubal, or result in miscarriage or labor. There is also the chance of a septic . The risks of insertion include infection and uterine perforation. There is always the risk that the IUD may migrate into the uterine wall or into the abdomen. If the IUD is not placed during her period, she will need to use condoms with intercourse for two weeks after placement. We also discussed that the Mirena is a very effective form of control with high user satisfaction, and that there is no user error associated with its use. Pt verbalizes understanding and would like to proceed with this method of control. IUD INSERTION Date/Time: 10/03/2021 2:20 PM Performed by: Prieto Julio MD Authorized by: Prieto Julio MD Pre-Procedure Details: Indications for use: contraception. The risks of infection, uterine perforation, migration of the device, pain, bleeding, expulsion, and failure to prevent were discussed and informed consent was obtained. The patient was given a verbal description of the intended procedure including the risks and benefits of the procedure.The patient was then able to provide written informed consent for the above procedure. Current method of control: none. A urine test was negative. Procedure Details: A bimanual exam was performed. Uterus retroflexed. Speculum was inserted and cervix was visualized.The cervix was cleansed with antiseptic solution. A tenaculum was placed on the cervix. The uterus sounded to 6.5 (cm). The IUD was inserted according to the linen room custodian's directions without complications. IUD type: Mirena Lot number: [id number] Exp: 08/2023. The IUD strings were trimmed to 3 cm. Post-procedure Details: The patient tolerated the procedure well. The patient was advised to call for any fever, severe pain or heavy bleeding. She was advised to use over the counter analgesics as needed for mild to moderate pain. Comments: Post procedure instructions given Return for string check in 4 weeks Possible exposure to STD - [facility] [employer]TOLOGY-ELECTRICAL MAINTENANCE WORKER, LIQUID BASED Will treat as needed Answered all of patient's questions and she verbalized understanding Shared decision making; patient in agreement. I spent a total of 20 mins outside of Annual Grinder Hand Exam discussing alternative forms of controland particularly the mirena IUD which patient was interested in. Prieto Julio MD 10/03/2021 [facility] History of Present illness Narrative* Maureen Ybarra - 09/26/2021 9:40 AM EDT Nurse Note: Review of Systems Constitutional: Negative for fatigue and fever. HENT: Negative for congestion, ear pain and sore throat. Eyes: Negative for pain and redness. Respiratory: Negative for cough and shortness of breath. Cardiovascular: Negative for chest pain and palpitations. Gastrointestinal: Negative for abdominal pain, constipation, diarrhea and nausea. Genitourinary: Negative for difficulty urinating and dysuria. Musculoskeletal: Negative for arthralgias and myalgias. Skin: Negative for rash and wound. Neurological: Positive for headaches. Negative for dizziness. All other systems reviewed and are negative. * Mary Alice Lopez - 09/26/2021 9:40 AM EDT HPI: Already scheduled PAP with EU[facility]E on 10/03. Here to discuss options for contraception up to and including tubal ligation. Discussed, the pill, the ring, the shot, the implant, and IUD. Also discussed referral OBGYN for insertion or surgery. Discussed side effects of control options, and recovery for ligation if chosen. * ERIC Velazquez - 09/26/2021 9:40 AM EDT Chief Complaint Patient presents with Contraception HPI: Contraception: is interested in this today, denies problems with period, is regular without menorrhagia, she is scheduled for pap next week and would like to be checked for STD at that time. ROS: Constitutional: Negative for fatigue and fever. HENT: Negative for congestion, ear pain and sore throat. Eyes: Negative for pain and redness. Respiratory: Negative for cough and shortness of breath. Cardiovascular: Negative for chest pain and palpitations. Gastrointestinal: Negative for abdominal pain, constipation, diarrhea and nausea. Genitourinary: Negative for difficulty urinating and dysuria. Musculoskeletal: Negative for arthralgias and myalgias. Skin: Negative for rash and wound. Neurological: Positive for headaches. Negative for dizziness. All other systems reviewed and are negative. Past medical/family/social history: reviewed and updated, see documented in patient's chart. Physical Exam: BP 118/82 Pulse 77 Ht 1.62 m (5' 3.78 ) Wt 66.1 kg (145 lb 12.8 oz) BMI 25.20 kg/m Smoking Status Never Smoker Body mass index is 25.2 kg/m . Physical Exam HENT: Head: Normocephalic and atraumatic. Eyes: Conjunctiva/sclera: Conjunctivae normal. Pupils: Pupils are equal, round, and reactive to light. Cardiovascular: Rate and Rhythm: Normal rate and regular rhythm. Heart sounds: Normal heart sounds. No murmur heard. Pulmonary: Effort: Pulmonary effort is normal. Breath sounds: Normal breath sounds. Musculoskeletal: Cervical back: Normal range of motion and neck supple. Skin: General: Skin is warm and dry. Neurological: Mental Status: She is alert and oriented to person, place, and time. Assessment/Plan: 1. Encounter for other contraceptive management Discussed various contraceptive options with patient, she would like to get IUD placed, encouraged to make appointment with Dr. Julio for placement of this, will update pap next week. Orders and follow up as documented in patient record; Patient was advised to call with any questions or concerns. If symptoms worsen patient was advised to follow up in our office or the Emergency Dept. Benefits, Risks, Contraindications, and Complications of recommended treatments were explained the patient understands and agrees to proceed with plan. ERIC Velazquez 09/26/2021 [facility] Encounter for other contraceptive management- Primary [facility] Diagnosis Encounter for other general counseling or advice on contraception Encounter for screening for cervical cancer Encounter for breast cancer screening using non-mammogram modality Possible exposure to STD Other specified personal history presenting hazards to health [facility] Diagnosis Encounter for routine checking of intrauterine contraceptive device (IUD)- Primary IUD (intrauterine device) in place Presence of intrauterine contraceptive device [facility] Diagnosis Unwanted fertility- Primary documented in [facility]* Diagnosis Tinea versicolor- Primary Pityriasis versicolor Skin rash Rash and other nonspecific skin eruption documented in this encounter [facility]* Diagnosis Encounter to discuss procedure Unwanted fertility Sterilization consult Other general counseling and advice for contraceptive management documented in this encounter [facility]* Diagnosis Normal gynecologic examination documented in this encounter [facility]* Diagnosis Pre-operative exam Unspecified pre-operative examination Request for sterilization documented in this encounter [facility] general Narrative - Reported* Type Description Date Medical History IUD IN PLACE Trumpet Search Other History of Present Illness * Cyndy Cox APRN-CHILDCARE CENTER ADMINISTRATOR - 04/23/2019 9:30 AM EST Chief Complaint Patient presents with New Patient HPI: Astrid Malave is here for a routine physical exam. Any medical concerns: No Diet/Exercise Habits: goes to the gym about 5-6 times a week, tries to eat healthy. History of cardiovascular disease: No Family history of early onset cardiovascular disease: No Respiratory symptoms/concerns: No Change in bowel habits: No Colonoscopy up to date (if indicated): n/a Urinary concerns: No was treated for a UTI 2 weeks ago Sexually active: No Concerns: No History of physical/emotional or sexual abuse: No Normal Amount of stress: Yes Normal amount of sleep: Yes Memory concerns: No Health Maintenance: vaccines, screening testing up to date: No, discussed updating pap smear and TDAP. ROS: Constitutional: Negative for fatigue and fever. HENT: Negative for congestion, ear pain and sore throat. Eyes: Negative for pain and redness. Respiratory: Negative for cough and shortness of breath. Cardiovascular: Negative for chest pain and palpitations. Gastrointestinal: Negative for abdominal pain, constipation, diarrhea, nausea and vomiting. Genitourinary: Negative for difficulty urinating and dysuria. Musculoskeletal: Negative for arthralgias and myalgias. Skin: Negative for rash and wound. Neurological: Negative for dizziness and headaches. All other systems reviewed and are negative. Past medical/family/social history: reviewed and updated, see documented in patient's chart. Physical Exam: Blood pressure 114/75, pulse 82, height 1.62 m (5' 3.78 ), weight 62.1 kg (136 lb 14.4 oz), SpO2 100 %. Body mass index is 23.66 kg/m . Physical Exam HENT: Head: Normocephalic and atraumatic. Eyes: Conjunctiva/sclera: Conjunctivae normal. Pupils: Pupils are equal, round, and reactive to light. Neck: Musculoskeletal: Normal range of motion and neck supple. Cardiovascular: Rate and Rhythm: Normal rate and regular rhythm. Heart sounds: Normal heart sounds. No murmur. Pulmonary: Effort: Pulmonary effort is normal. Breath sounds: Normal breath sounds. Skin: General: Skin is warm and dry. Neurological: Mental Status: She is alert and oriented to person, place, and time. Assessment/Plan: 1. Well adult exam Discussed preventive medicine, recommend updating pap smear and TDAP, diet and exercise discussed, follow up one year. Orders and follow up as documented in patient record; Patient was advised to call with any questions or concerns. If symptoms worsen patient was advised to follow up in our office or the Emergency Dept. Benefits, Risks, Contraindications, and Complications of recommended treatments were explained the patient understands and agrees to proceed with plan. ERIC Velazquez 04/23/2019 * Josephine Elliott - 04/23/2019 9:30 AM EST Nurse Note: Review of Systems Constitutional: Negative for fatigue and fever. HENT: Negative for congestion, ear pain and sore throat. Eyes: Negative for pain and redness. Respiratory: Negative for cough and shortness of breath. Cardiovascular: Negative for chest pain and palpitations. Gastrointestinal: Negative for abdominal pain, constipation, diarrhea, nausea and vomiting. Genitourinary: Negative for difficulty urinating and dysuria. Musculoskeletal: Negative for arthralgias and myalgias. Skin: Negative for rash and wound. Neurological: Negative for dizziness and headaches. All other systems reviewed and are negative. documented in this encounter Assessments Diagnosis Well adult exam- Primary Routine general medical examination at a health care facility Summary Purpose Family History No Family History Records Found Advance Directives No Advanced Directives Records Found Reason for Referral Specialty Diagnoses / Procedures Referred By Shelly t Referred To Contact Obstetrics and Gynecology Diagnoses Unwanted fertility Procedures NE OFFICE/OUTPATIENT NEW HIGH MDM 60 MINUTES Jelly Kennedy, NICHOLASM [address] [place] [address] Charles Alvarado, [address] [place] [address] Referral ID Status Reason Start Date Expiration Date Visits Requested Visits Authorized [id number] Pending Review Specialty Services Required 02/12/2024 08/10/2024 1 1 Additional Source Comments Reason for Visit (unrecogniz ed section and content) Reason Comments New Patient Reason Comments Contraception Reason Comments Annual Exam Patient here for carlos a ual with pap. Requesting STD testing. This is her 1st pap. Reason Comments Contraception Here for IUD sting c heck. Mirena placed on 10-03-21. Reason Comments discuss a salpingectomy Pt present today to discuss a salpingectomy Specialty Diagnoses / Procedures Referred By Shelly t Referred To Contact Obstetrics and Gynecology Diagnoses Unwanted fertility Procedures NE OFFICE/OUTPATIENT NEW [facility] 60 MINUTES Jelly Kennedy, CHRISTOHPER [address] [place] [address] Phone: tel: fax: Charles Alvarado, [address] [place] [address] Phone: tel: fax: Referral ID Status Reason Start Date Expiration Date V isits Requested Visits Authorized [id number] Closed Specialty Services Required 02/12/2024 08/10/2024 1 1 Reason Comments Gynecologic Exam Reason Comments Pre-op Visit Care Teams (unrecognized sec tion and content) Cut In Worker Relationship Specialty Start Date End Date Cyndy Cox, APPLICATIONS SYSTEMS ENGINEER-[facility]ILDCARE C[facility] ADMINISTRATOR [address] [place] [address] PCP - General Certified Nurse Practitioner 04/23/19 Cut In Worker Relationship Specialty Start Date End Date Cyndy Cox, APPLICATIONS SYSTEMS ENGINEER-[facility]ILDCARE CENTER ADMINISTRATOR [address] [place] [address] PCP - General Certified Nurse Practitioner 04/23/19 Cut In Worker Relationship Specialty Start Date End Date Cyndy Cox, APPLICATIONS SYSTEMS ENGINEER-CHILDCARE CENTER ADMINISTRATOR [address] [place] [address] PCP - General Certified Nurse Practitioner 04/23/19 Cut In Worker Relationship Specialty Start Date End Date Patrizia Sal MD [address] [place] [address] PCP - General Family Medicine 01/29/23 Patrizia Sal MD [address] [place] [address] PCP - [employer] 04/05/23 Cut In Worker Relationship Specialty Start Date End Date Patrizia Sal MD [address] [place] [address] PCP - General Family Medicine 01/29/23 Patrizia Sal MD [address] [place] [address] PCP - [employer] 04/05/23 Cut In Worker Relationship Specialty Start Date End Date Patrizia Sal MD [address] [place] [address] PCP - General Family Medicine 01/29/23 Patrizia Sal MD [address] [place] [address] PCP - [employer] 04/05/23 Cut In Worker Relationship Specialty Start Date End Date Patrizia Sal MD [address] [place] [address] PCP - General Family Medicine 01/29/23 Patrizia Sal MD [address] [place] [address] PCP - [employer] 04/05/23 Cut In Worker Relationship Specialty Start Date End Date Patrizia Sal MD [address] [place] [address] PCP - General Family Medicine 01/29/23 Patrizia Sal MD [address] [place] [address] PCP - [employer] 04/05/23 Cut In Worker Relationship Specialty Start Date End Date Patrizia Sal MD [address] [place] [address] PCP - General Family Medicine 01/29/23 Patrizia Sal MD [address] [place] [address] PCP - [employer] 04/05/23 Cut In Worker Relationship Specialty Start Date End Date Patrizia Sal MD [address] [place] [address] PCP - General Family Medicine 01/29/23 Patrizia Sal MD [address] [place] [address] PCP - [employer] 12/1/23 INFORMATION SOURCE (unrecogn ized section and content) DATE CREATED AUTHOR 11/01/2021 Michael Loren Linus yee FOR RECORDS PERTAINING TO PATIENTS WHO ARE OR HAVE BEEN ENROLLED IN A CHEMICAL DEPENDENCY/SUBSTANCEABUSE PROGRAM, SOME INFORMATION MAY BE OMITTED. This clinical summary was aggregated from multiple sources. Caution should be exercised in using it in the provision of clinical care. This summary normalizes information from multiple sources, and as a consequence, information in this document may materially change the coding, format and clinical context of patient data. In addition, data may be omitted in some cases. CLINICAL DECISIONS SHOULD BE BASED ON THE PRIMARY CLINICAL RECORDS. [employer] [facility] provides no warranty or guarantee of the accuracy or completeness of information in this document.
[2024-06-05 07:05] LABS: Basophils Percent Auto 0.6 % (0.2-2.0); Eosinophils Absolute Auto 0.2 10^3/uL (0.0-0.7); Eosinophils Percent Auto 2.8 % (0.9-7.0); Hemoglobin 13.8 g/dL (12.0-16.0); Immature Granulocytes Abs Auto 0.02 10^3/uL (0.00-0.03); Immature Granulocytes Pct Auto 0.3 % (0.0-0.5); Lymphocytes Absolute Auto 2.1 10^3/uL (1.2-3.8); Lymphocytes Percent Auto 33.2 % (20.5-60.0); Mean Corpuscular HGB Conc 32.1 g/dL (29.9-35.2); Mean Corpuscular Hemoglobin 30.1 pg (26.7-34.0); Mean Corpuscular Volume 93.9 fL (81.0-99.0); Mean Platelet Volume 8.9 fL (9.5-13.5); Monocytes Absolute Auto 0.8 10^3/uL (0.3-0.8); Monocytes Percent Auto 11.8 % (1.7-12.0); Neutrophils Absolute Auto 3.3 10^3/uL (1.4-6.5); Neutrophils Percent Auto 51.3 % (43.0-75.0); Platelet Count 304 10^3/uL (150-450); Red Blood Count 4.58 10^6/uL (4.20-5.40); Red Cell Distribution Width 12.5 % (11.0-15.0); White Blood Count 6.4 10^3/uL (4.0-11.0)
[2024-06-05] MEDS: LACTATED RINGER'S SOLUTION 1,000 ML 50 ML IV ×2 (07:26→09:10)
[2024-06-05 07:41] LABS: HCG Quantitative <1 mIU/mL
--- NOTE | 2024-06-05 09:17 | P.ON_ITS ---
Brief Operative Note Date of procedure: 06/05/24 Pre-op diagnosis general: desires sterilization, multiparity Post-op diagnosis: same as pre-op Procedure: NAME OF PROCEDURE: robotic assisted bilateral laparoscopic salpingectomy PROCEDURE: The patient was taken back to the Operating Room where she was given general anesthesia without difficulty. She was then prepped and draped in the normal sterile fashion after being placed in a dorsal lithotomy position. A wet sponge stick was placed into the patient's vagina. Attention was then turned to the patient's abdomen, where a scalpel was used to make a small infraumbilical incision. The S retractors were then used to dissect the underlying layers until the fascia could be seen. The fascia was then grasped with Shahab clamps and tented up. A knife was then used to make a small incision to the fascia. The muscle was identified, at that time two sutures of #0 Vicryl on a GI needle was then used and placed through the fascia. the peritoneum was then identified and entered bluntly. The 10-4 Checo was then placed into the patient's abdomen. This was confirmed with direct visualization of the bowel, using the laparoscope. The patient's abdomen was then insufflated using approximately 4 liters of CO2 gas. Survey of the patient's abdomen demonstrated ovaries were normal in appearance as well as both tubes and uterus. A second and third rt and lt lateral robotic ports which were 8 mm in size, was then placed after the skin incision was made under direct visualization . the robotic arms were engaged. The patient's tube on the patient's right side was identified and tented up using a grasper, the ligasure apparatus was then used to come across the mesosalpingx from the fimbriated end to the insertion site at the uterus, the tube was then amputated and removed in its entirety. This was done on the contralateral side. The tubes were the removed from the patients abdomen. Excellent hemostasis was noted. The lateral ports were then moved under direct visualization with excellent hemostasis. All instruments were removed from the patient's abdomen. The fascia was closed using the #0 Vicryl on GI needle. The skin was closed using 4-0 Vicryl subcuticularly. All instruments were removed from the patient's vagina as well. The patient was taken out of the dorsal lithotomy position and placed in the supine position and taken to recovery in stable condition. Sponge, lap and needle counts were correct x2. Anesthesia: TANIYAA Surgeon: Charles Alvarado Installation Helper: Odalis Dillon Estimated blood loss (mL): 575 Pathology: other (tubes) Condition: stable Disposition: PACU Urinary Catheter Management Urinary Catheter Management Urethral: Cath placed during this visit: no
[2024-06-05] MEDS: HYDROCODONE/ACET 5-325 MG TABLET 1 TAB PO (10:24)
== END 2024-06-05 11:29 | disposition home or self-care (01) ==
PROVIDERS: PCP Nurse Practitioner Family; Visit Provider Obstetrics & Gynecology
PROC: (CPT 840; principal; 2024-06-05 08:15)
DX: Z30.2 Encounter for sterilization (principal); N83.8 Other noninflammatory disorders of ovary, fallopian tube and broad ligament
CPT/HCPCS: 58661; 36415; 84702; 85025; 88302; J1100; J2250; J2371; J2405; J2704; J3010